=== PATIENT | female | born 2000 | race Caucasian/White ===

== ENCOUNTER 2025-01-23 10:50 | Emergency (ER) | payer BC, SELFPAY ==
[2025-01-23 10:56] VITALS: BP 137/100
[2025-01-23 12:00] VITALS: BP 124/88
--- NOTE | 2025-01-23 12:01 | ED.GENMED ---
History of Present Illness
<Seymour Velasquez MD - Last Filed: 01/23/25 12:50>
General
Chief Complaint: Abdominal Symptoms
Source: patient
Exam Limitations: none
Time Seen by Provider: 01/23/25 11:18
Nursing documentation reviewed up to this point in time: agreed with
History of Present Illness
History of Present Illness:
24-year-old female with no significant chronic medical issues presents to the ER for evaluation of abdominal pain with diarrhea and nausea. Patient reports onset of symptoms Tuesday night/early Tuesday morning and they have been constant since that
time. She reports vague periumbilical abdominal pain 'like a rock.' Pain has been consistent, nonradiating initially but today radiating towards the lower abdomen. No clear triggering or relieving factors noted. She has associated nausea and had
a few episodes of vomiting initially but no vomiting since. She has had profuse diarrhea over the past 48 hours nonbloody. She says today she has had about 10 episodes of watery stools. She denies any fever. She denies any urinary symptoms.
Denies any vaginal bleeding. Last menstrual period was 2-1/2 weeks ago. Denies prior abdominal surgeries. She does note that she has been under significant stress at school over the past few days which she thinks may have triggered some of her
symptoms.
Past History
<Seymour Velasquez MD - Last Filed: 01/23/25 12:50>
Social History
Tobacco: Non-smoker
Alcohol: None
Drug: None
Review of Systems
<Seymour Velasquez MD - Last Filed: 01/23/25 12:50>
Review of Systems
All Other Systems: ROS reviewed and negative except as documented in HPI and ROS
Constitutional: Denies fever or chills
Respiratory: Denies cough or trouble breathing
Cardiac: Denies chest pain
ABD/GI: Reports abdominal pain, nausea, vomiting and diarrhea
: Denies dysuria, frequency or flank pain
Musculoskeletal: Denies neck pain or back pain
Neurological: Denies headache
Phy Exam
<Seymour Velasquez MD - Last Filed: 01/23/25 12:50>
Physical Exam
Physical Exam:
General: Awake, alert; no acute distress
Head: Normocephalic, atraumatic
Eyes: Conjunctiva normal
Throat: Airway intact, handling secretions
Neck: Trachea midline, supple without meningismus
Lungs: Clear to auscultation bilaterally, no wheezing, rales, rhonchi
Heart: Regular rate and rhythm, no murmurs, gallops, or rubs
Abd: Soft, non distended, minimally tender lower abdomen
Back: No CVA tenderness
Neuro: No gross deficit
Extremities: Warm and well-perfused
Scores
<Seymour Velasquez MD - Last Filed: 01/23/25 12:50>
Heart Failure Risk
Heart Failure Risk Score: Not Applicable
Heart Score for Chest Pain Patients
STEMI patient?: Not applicable
Withdrawal Assessment of Alcohol
Withdrawal Assessment Completed?: Not applicable
Course
<Seymour Velasquez MD - Last Filed: 01/23/25 12:50>
Orders/Labs/Results
Orders:
Orders
01/23/25 11:50
Iohexol [Omnipaque] See Protocol PO NOW STA
01/23/25 11:51
CT Abd/pel W Iv And Oral Contr Urgent
Comment:
Reason For Exam: abdominal pain, diarrhea, vomiting
Test Result ONCE
01/23/25 12:04
Complete Blood Count/With Diff Urgent
Comprehensive Metabolic Panel Urgent
HCG, Serum Qualitative Screen Urgent
01/23/25 12:22
0.9% Sodium Chloride 1000 ml [Nss] 1,000 ml IV BOLUS
Ondansetron Injectable [Zofran] 4 mg IV NOW STA
01/23/25 12:40
Urinalysis Reflex To Culture Urgent
Date Specimen was Collected: 01/23/25
Time Specimen was Collected: 12:38
Urine Microscopic Reflex Cult Urgent
01/23/25 13:15
Norovirus by PCR Urgent
DARINEL Source: Feces/Stool
Specimen Description:
Date Specimen was Collected: 01/23/25
Time Specimen was Collected: 13:13
STOOL [C difficile Antigen & Toxins] Urgent
DARINEL Source: Feces/Stool
Specimen Description:
Date Specimen was Collected: 01/23/25
Time Specimen was Collected: 13:13
Stool Culture Urgent
DARINEL Source: Feces/Stool
Specimen Description:
Date Specimen was Collected: 01/23/25
Time Specimen was Collected: 13:13
Abnormal Lab Results
01/23/25 01/23/25
12:04 12:40
Lymphocytes % 18.3 L %
(20.5-51.1)
Chloride 109 H mmol/L
(98-107)
Carbon Dioxide 18 L mmol/L
(22-30)
Glucose 101 H mg/dl
(70-99)
Ur Occult Blood Reflex 2+ A
(Negative)
Urine Bilirubin 1+ A
(Negative)
Urine Bacteria (Reflex) Few A
(Negative)
Urine Albumin (Reflex) 2+ A
(Neg - Trace)
01/23/25 12:04
01/23/25 12:04
Vital Signs
Initial and Last Documented VS:
Initial Vital Signs
Temp Pulse Resp BP Pulse Ox
98.9 F 93 20 137/100 100
01/23/25 10:56 01/23/25 10:56 01/23/25 10:56 01/23/25 10:56 01/23/25 10:56
Last Documented Vital Signs
Temp Pulse Resp BP Pulse Ox
98.9 F 83 20 132/75 99
01/23/25 10:56 01/23/25 14:00 01/23/25 14:00 01/23/25 14:00 01/23/25 14:00
<Partha Cowart MD - Last Filed: 01/23/25 15:40>
Orders/Labs/Results
Orders:
Orders
01/23/25 11:50
Iohexol [Omnipaque] See Protocol PO NOW STA
01/23/25 11:51
CT Abd/pel W Iv And Oral Contr Urgent
Comment:
Reason For Exam: abdominal pain, diarrhea, vomiting
Test Result ONCE
01/23/25 12:04
Complete Blood Count/With Diff Urgent
Comprehensive Metabolic Panel Urgent
HCG, Serum Qualitative Screen Urgent
01/23/25 12:22
0.9% Sodium Chloride 1000 ml [Nss] 1,000 ml IV BOLUS
Ondansetron Injectable [Zofran] 4 mg IV NOW STA
01/23/25 12:40
Urinalysis Reflex To Culture Urgent
Date Specimen was Collected: 01/23/25
Time Specimen was Collected: 12:38
Urine Microscopic Reflex Cult Urgent
01/23/25 13:15
Norovirus by PCR Urgent
DARINEL Source: Feces/Stool
Specimen Description:
Date Specimen was Collected: 01/23/25
Time Specimen was Collected: 13:13
STOOL [C difficile Antigen & Toxins] Urgent
DARINEL Source: Feces/Stool
Specimen Description:
Date Specimen was Collected: 01/23/25
Time Specimen was Collected: 13:13
Stool Culture Urgent
DARINEL Source: Feces/Stool
Specimen Description:
Date Specimen was Collected: 01/23/25
Time Specimen was Collected: 13:13
Abnormal Lab Results
01/23/25 01/23/25
12:04 12:40
Lymphocytes % 18.3 L %
(20.5-51.1)
Chloride 109 H mmol/L
(98-107)
Carbon Dioxide 18 L mmol/L
(22-30)
Glucose 101 H mg/dl
(70-99)
Ur Occult Blood Reflex 2+ A
(Negative)
Urine Bilirubin 1+ A
(Negative)
Urine Bacteria (Reflex) Few A
(Negative)
Urine Albumin (Reflex) 2+ A
(Neg - Trace)
01/23/25 12:04
01/23/25 12:04
Vital Signs
Initial and Last Documented VS:
Initial Vital Signs
Temp Pulse Resp BP Pulse Ox
98.9 F 93 20 137/100 100
01/23/25 10:56 01/23/25 10:56 01/23/25 10:56 01/23/25 10:56 01/23/25 10:56
Last Documented Vital Signs
Temp Pulse Resp BP Pulse Ox
98.9 F 83 20 132/75 99
01/23/25 10:56 01/23/25 14:00 01/23/25 14:00 01/23/25 14:00 01/23/25 14:00
<Seymour Velasquez MD - Last Filed: 01/23/25 12:50>
MDM/Problems Addressed
Differential Diagnosis Includes:
Gastroenteritis, stress/panic, appendicitis
MDM/Problems Addressed:
24-year-old female presents with abdominal pain associate with nausea and diarrhea over the past few days in the setting of recent heavy stress. Vitals and exam as above. She was seen in urgent care and there was apparently some concern for
appendicitis and so she was sent to the ER. Will plan to send labs including a CBC and a CMP, hCG. Check urinalysis. Check CT abdomen pelvis. Reassess after the above.
<Seymour Velasquez MD - Last Filed: 01/23/25 12:50>
*Radiology
Radiology exam reviewed: radiology read reviewed
*Pulse Oximetry
Patient hypoxic: no
*Critical Care Note
Total Time (30-74mins, 75-104mins- exclusive of procedures): Not Applicable
Data Reviewed
Review of Other/Old Records Reveals: Labs
Source: patient
<Partha Cowart MD - Last Filed: 01/23/25 15:40>
Update Note
Update Note:
CT abdomen pelvis report reviewed and discussed with patient. Patient otherwise is afebrile, hemodynamically stable, and nontoxic-appearing at time of discharge. Recommended PCP follow-up outpatient, or return to ED with worsening symptoms.
ED Attending Note
<Seymour Velasquez MD - Last Filed: 01/23/25 12:50>
-
Portions of this chart may have been created with voice recognition software.� Occasional wrong word or��sound alike� substitutions may have occurred due to the inherent limitations of voice recognition software.
Discharge Plan
Departure
Patient Disposition: Home (Routine Discharge)
Date of Disposition: 01/23/25
Time of Disposition: 15:35
Patient with high blood pressure during this ER visit?: No
Discharge Problem:
Gastroenteritis
Instructions: Viral gastroenteritis in adults, [place] Diet
Prescriptions:
New
ondansetron 4 mg Tablet,Disintegrating
4 mg PO TIDPRN PRN (Reason: nausea/vomiting) Qty: 12 0RF
No Action
methylprednisolone [Medrol (Geovani)] 4 MG tablets,dose pack
4 tab PO . DIRECT Qty: 1 0RF
albuterol sulfate [Proventil HFA] 90 MCG/PUFF HFA aerosol inhaler
1 puff inhalation Q4HPRN PRN (Reason: shortness of breath) Qty: 1 0RF
Referrals:
Melissa Dorsey DO [Family Provider, Family Practice] - Follow up in 5-7 days
Activity Restrictions/Additional Instructions:
Thank you for visiting the Emergency Department at [facility].
1. Please schedule a follow up appointment as directed. Call first thing tomorrow morning to make an appointment.
2. If indicated, please take your medications as instructed and indicated on discharge paperwork.
3. If any of your symptoms do not improve, or persist, or become more severe within 6-12 hours, please return to the emergency department for further care.
4. Please return to the emergency department if you develop a headache, neck pain/stiffness, fever greater than 100.4F, chest pain, shortness of breath, persistent nausea, vomiting, slurred speech, difficulty walking, numbness/tingling, weakness,
signs of infection or any other symptoms that are worrisome to you.
Please call [phone] if you have any questions.
Interventions
Interventions:
*Risk Screen - Suicide Last Done: 01/23/25 12:10
*General Assessment Last Done: 01/23/25 12:10
*Neglect/Abuse Screening Last Done: 01/23/25 12:10
*ED COVID-19 Vaccine History Last Done: 01/23/25 12:10
QE-Mthgwy-Iktokmpdfp Assessment Last Done: 01/23/25 12:10
Discharge Date and Time
Print Language: ANGOLAN
[2025-01-23 12:10] LABS: % Basophils 0.5 % (0-2); % Eosinophils 0.9 % (0-6); % Immature Granulocytes 0.5 % (0-0.5); % Lymphocytes 18.3 % (20.5-51.1); % Neutrophils 72.8 % (42.2-75.2); Absolute Eosinophils 0.1 10^3/uL (0-0.7); Absolute Lymphocytes 1.2 10^3/uL (1.2-3.4); Absolute Monocytes 0.5 10^3/uL (0.1-0.6); Absolute Neutrophils 4.7 10^3/uL (1.4-6.5); Hematocrit 45.7 % (37.0-47.0); Mean Corpuscular Hgb 29.6 pg (27.0-31.0); Mean Corpuscular Volume 84.6 fL (81.0-99.0); Mean Platelet Volume 10.1 fL (7.4-10.4); Nucleated Red Blood Cells % 0 %; Platelet Count 240 10^3/uL (130-400); Red Cell Dist. Width 12.9 % (11.5-14.5); White Blood Cell Count 6.4 10^3/uL (4.8-10.8)
[2025-01-23] MEDS: OMNIPAQUE 50 ML PO (12:17)
[2025-01-23 12:20] LABS: HCG, Serum Qualitative Screen Negative
[2025-01-23] MEDS: ZOFRAN 4 MG IV (12:35)
[2025-01-23] MEDS: NSS 1000 IV (12:37)
[2025-01-23 12:44] LABS: ALT (SGPT) 20 U/L (0-35); AST (SGOT) 26 U/L (14-36); Albumin 4.4 g/dl (3.5-5.0); Alkaline Phosphatase 38 U/L (38-126); Blood Urea Nitrogen 12 mg/dl (7-17); Calcium 9.1 mg/dl (8.4-10.2); Carbon Dioxide 18 mmol/L (22-30); Chloride 109 mmol/L (98-107); Glucose 101 mg/dl (70-99); Potassium 3.8 mmol/L (3.5-5.1); Sodium 137 mmol/L (135-145); Total Bilirubin 0.5 mg/dl (0.2-1.3); Total Protein 7.3 g/dl (6.3-8.2); eGFR > 60.00
[2025-01-23 13:00] LABS: Urine Albumin 2+ (Neg - Trace); Urine Bilirubin 1+ (Negative); Urine Character Clear (Clear); Urine Color Yellow; Urine Glucose Negative (Negative); Urine Ketone Negative (Negative); Urine Leukocyte Negative (Negative); Urine Nitrite Negative (Negative); Urine Occult Blood 2+ (Negative); Urine Urobilinogen Negative (Neg - 1+)
[2025-01-23 13:21] LABS: Urine Bacteria Few (Negative); Urine Mucus Few; Urine Red Blood Cell 0-2 /HPF (0-2)
[2025-01-23 14:00] VITALS: BP 132/75
== END 2025-01-23 15:45 | disposition home or self-care (01) ==
LOC: EMR 10:50
PROVIDERS: EMERGENCY PHYSICIAN Emergency Medicine; FAMILY PHYSICIAN Family Medicine
DX: K52.9 Noninfective gastroenteritis and colitis, unspecified (principal)
CPT/HCPCS: 99284; 96374; 96361; 74177; 80053; 81003; 81015; 84703; 85025; 87045; 87046; 87324; 87427; 87449; 87798; Q9967

== ENCOUNTER → 2025-04-03 12:40 | Outpatient (REF) | payer BC, SELFPAY | LOC: HWRAD 12:40 | PROVIDERS: ATTENDING PHYSICIAN Family Medicine | DX: M46.1 Sacroiliitis, not elsewhere classified (principal); M54.50 Low back pain, unspecified | CPT/HCPCS: 72110; 72202 ==